=== PATIENT | female | born 1940 | race Caucasian/White ===

== ENCOUNTER 2019-11-10 07:54 | Day surgery (SDC) | payer MEDICARE, SELFPAY ==
[2019-11-09 09:55] VITALS: BMI 23.6
--- NOTE | 2019-11-10 08:08 | ANES.PREANES ---
Pre-Anesthetic Assessment Pre-Anesthetic Assessment: Height/Weight: Height 1.65 m Weight 64.41 kg Preop Diagnosis: abdominal pain Proposed Procedure: Operation Date: 11/10/19 09:30 Proposed Procedures p EGD(Not Applicable) - Jim Christianson MD Last Intake: 22:00 Social: Social History: Tobacco Packs per day: 1/2 ppd Pack years: 32 Exam: Pre-Anes Outpt Exam: alert, oriented x 3, clear to auscultation bilaterally and regular rate & rhythm Airway: Dentition: False CV/HEM: CV/HEM: HTN Comments: rx'd 10years : Comments: frequency, urgency GI: GI: GERD Comments: abdominal pain Metabolic: Metabolic: Thyroid Comments: replacement x 15 years Musc/skel: Musc/skel: Lower Back Pain Comments: right radiculopathy Neuropsych: Neuropsych: Anxiety Anesthetic Plan: ASA status: III Anesthesia: MAC PFSH Anesthesia PFSH: Social History (Updated 11/09/19 @ 09:37 by Leandra Crespo) Smoking and tobacco status: never smoked Alcohol intake: never Caregiver/support person: Yes Lives independently: Yes Household members: spouse Marital status: Current occupational status: retired Special mingo needs: No Data Anesthesia Cardiac Studies: No Data to Display
--- NOTE | 2019-11-10 08:33 | PM.HPUD ---
H&P update H&P Update: DATE OF SURGERY/PROCEDURE: 11/10/19 DATE H&P PERFORMED: 10/20/19 H&P UPDATE INFORMATION: H&P completed within last 30 days and No changes to prior documentation PLANNED PROCEDURE: Operation Date: 11/10/19 09:30 Proposed Procedures p EGD(Not Applicable) - Jim Christianson MD Full H&P Perinent History: Social History: Social History Smoking and tobacco status: never smoked Alcohol intake: never Caregiver/support person: Yes Lives independently: Yes Household members: spouse Marital status: Current occupational status: retired Special mingo needs: No
--- NOTE | 2019-11-10 08:38 | P.HPUD_ITS ---
H&P update H&P Update: DATE OF SURGERY/PROCEDURE: 11/10/19 DATE H&P PERFORMED: H&P UPDATE INFORMATION: H&P completed within last 30 days and No changes to prior documentation PLANNED PROCEDURE: Operation Date: 11/10/19 09:30 Proposed Procedures p EGD(Not Applicable) - Jim Christianson MD Full H&P Perinent History: Social History: Social History Smoking and tobacco status: never smoked Alcohol intake: never Caregiver/support person: Yes Lives independently: Yes Household members: spouse Marital status: Current occupational status: retired Special mingo needs: No
[2019-11-10 08:40] VITALS: BP 175/100; PULSE 68; RESP 18; TEMP 36.2; O2SAT 95
[2019-11-10] MEDS: sodium chloride 0.9% 1,000 ML 30 ML (08:50)
[2019-11-10 09:31] VITALS: BP 166/77; PULSE 68; RESP 16; TEMP 36.6; O2SAT 100
[2019-11-10 09:47] VITALS: BP 166/80; PULSE 66; RESP 16; O2SAT 94
--- NOTE | 2019-11-10 09:57 | ANE.PACU ---
 Inpatient post-anesthesia follow up: Airway intact: Yes Vital signs: Temperature 97.8 F Pulse Rate [Right] 66 Respiratory Rate 16 Blood Pressure [Ri ght Arm] 166/80 Pulse Oximetry 94 Oxygen Delivery Me thod Room Air Oxygen Flow Rate 3 Fraction of Inspir ed Oxygen Hydration adequate: Yes Nausea and vomiting: No Mental status: Baseline
== END 2019-11-10 10:04 | disposition home or self-care (01) ==
PROVIDERS: Family Provider Family Medicine; PCP Nurse Practitioner Family; Visit Provider Surgery
PROC: 0DJ08ZZ Inspection of Upper Intestinal Tract, Via Natural or Artificial Opening Endoscopic (ICD-10-PCS; CPT 43235; principal; 2019-11-10 09:30)
DX: K21.9 Gastro-esophageal reflux disease without esophagitis (principal); K44.9 Diaphragmatic hernia without obstruction or gangrene; K29.70 Gastritis, unspecified, without bleeding; F17.210 Nicotine dependence, cigarettes, uncomplicated; F41.9 Anxiety disorder, unspecified; E03.9 Hypothyroidism, unspecified; E78.5 Hyperlipidemia, unspecified; I11.0 Hypertensive heart disease with heart failure; I50.9 Heart failure, unspecified; I25.10 Atherosclerotic heart disease of native coronary artery without angina pectoris
CPT/HCPCS: 12345; 43239; 88305; 96365; J2704; J3490; J7030

== ENCOUNTER 2019-11-25 12:53 | Outpatient (CLI) | payer MEDICARE, SELFPAY ==
--- NOTE | 2019-11-25 12:59 | CT_ITS ---
WS: [id number] CT ABDOMEN PELVIS TECHNIQUE: Contrast-enhanced CT of the abdomen and pelvis with coronal and sagittal reformatted image s. CLINICAL INFORMATION: epigastric pain COMPARISON: None. DLP: 570.[address] scans at [facility] use at least one of these dose optimization techniques: automat ed exposure control; mA and/or kV adjustment per patient size (includes targeted exams where dose is matched to clinical indication); or iterative reconstruction. FINDINGS: Mild diffuse fatty infiltration of the liver. Portal vein and splenic vein are patent. Splenic granul omas. Moderate sliding esophageal hiatal hernia with a small paraesophageal component. No evidence of obstruction. Emphysematous change in the lung bases. Calcified granuloma left lower lobe. Adrenal glands are talia l. No hydronephrosis. Normal renal parenchymal enhancement. Normal caliber abdominal aorta. Aortic ca lcification. Normal caliber small and large bowel. Scattered stool in the colon. 2.8 cm focus of soft tissue densi ty at the ileocecal valve may represent inspissated fecal material but is indeterminant and recommend further evaluation with colonoscopy to exclude neoplasm. Additional short segment area of narrowing in the right colon coronal series image 31 and 32 may be due to spasm. No evidence of small or large bowel obstruction. No periaortic or inguinal lymphadenopathy. Prior postoperative changes L2-L4 pedicle screw fixation with interbody fusion L3-4. Grade 1 anteroli sthesis L4 on L5 with prior interbody fusion. Wide laminectomy defects with dorsolateral bone graft m aterial L2-L5. CT/CT abdomen pelvis w con* [id number] IMPRESSION: 1. Mild diffuse fatty infiltration of the liver. 2. Esophageal hiatal hernia with a small paraesophageal component. No evidence of obstruction. 3. Soft tissue density in the cecum near the ileocecal valve measuring 2.8 cm is indeterminant. Recommend further evaluation with colonoscopy. Additional britta rt segment region of narrowing involving the right ascending colon. 4. Normal caliber abdominal aorta. Aortic calcification. 5. No periaortic or inguinal lymphadenopathy. 6. Prior postoperative changes lower lumbar spine with pedicle screw fixation. Grade 1 anterolisthesis L4 on L5 with wide laminectomy defects L2-L5.
[2019-11-25] MEDS: iohexol 300 mg/mL 50 mL Btl IV (13:03)
[2019-11-25 13:41] LABS: Blood Urea Nitrogen 17 mg/dL (8-23)
[2019-11-25] MEDS: iohexol 300 mg/mL 100 mL Btl IV (14:08)
== END 2019-11-25 12:54 | disposition home or self-care (01) ==
LOC: RAD 12:57
PROVIDERS: Family Provider Family Medicine; PCP Nurse Practitioner Family; Visit Provider Surgery
DX: R10.13 Epigastric pain (principal); K76.0 Fatty (change of) liver, not elsewhere classified; K44.9 Diaphragmatic hernia without obstruction or gangrene; I70.0 Atherosclerosis of aorta
CPT/HCPCS: 36415; 74177; 82565; 84520

== ENCOUNTER 2019-12-01 06:57 | Day surgery (SDC) | payer MEDICARE, SELFPAY ==
[2019-12-01 07:26] VITALS: BMI 23.6
[2019-12-01 07:35] VITALS: BP 158/96; PULSE 106; RESP 18; TEMP 37.3; O2SAT 97
[2019-12-01] MEDS: sodium chloride 0.9% 1,000 ML 30 ML (07:36)
--- NOTE | 2019-12-01 07:42 | ANES.PREANE2 ---
Pre-Anesthetic Assessment Pre-Anesthetic Assessment: Height/Weight: Height 1.65 m Weight 64.41 kg Temp Pulse Resp BP Pulse Ox 99.2 F 106 H 18 158/96 97 12/01/19 07:35 12/01/19 07:35 12/01/19 07:35 12/01/19 07:35 12/01/19 07:35 Preop Diagnosis: Colonic mass Proposed Procedure: Operation Date: 12/01/19 08:00 Proposed Procedures p Colonoscopy 83494/K56.699(Not Applicable) - Jim Christianson MD Was Beta Coleman taken within 24 hours: Yes Last intake: Intake Last Liquid Date 11/30/19 Last Liquid Time 02:00 Last Solid Date 11/29/19 Last Solid Time 18:00 Social: Social History: Tobacco and No alcohol Exam: Pre-Anes Outpt Exam: alert, oriented x 3, clear to auscultation bilaterally and regular rate & rhythm Airway: Submandibular: WNL Cervical ROM: WNL MP: 2 Dentition: False and Full History/ROS: No significant history except as noted and No significant complaints Pulmonary: Pulmonary: None reported CV/HEM: CV/HEM: Arrythmia and HTN : : None reported Hepatic: Hepatic: None reported GI: GI: GERD and Hiatus hernia Metabolic: Metabolic: Thyroid Musc/skel: Musc/skel: None reported Neuropsych: Neuropsych: Anxiety and Neuropathy Anesthetic Plan: ASA status: 3 Anesthesia: Anesthesia Evaluation and MAC Risk of > 500 ml blood loss (7ml/kg in children): No PFSH Anesthesia PFSH: Medical History (Updated 11/27/19 @ 10:57 by Jim Christianson MD) Anxiety Gastritis GERD (gastroesophageal reflux disease) Gout Hiatal hernia Hyperlipidemia Hypertension Hypothyroidism Migraine Neuropathy Surgical History (Updated 11/27/19 @ 10:54 by Jim Christianson MD) History of appendectomy History of bilateral cataract extraction History of bladder surgery History of colonoscopy History of esophagogastroduodenoscopy (EGD) 11/10/2019: Gastritis and hiatal hernia History of hernia repair with mesh History of lumbar fusion History of repair of rectocele History of thyroidectomy History of tonsillectomy S/P KENTON-BSO Social History (Updated 11/09/19 @ 09:37 by Leandra Crespo) Smoking and tobacco status: never smoked Alcohol intake: never Caregiver/support person: Yes Lives independently: Yes Household members: spouse Marital status: Current occupational status: retired Special mingo needs: No Data Anesthesia Cardiac Studies: No Data to Display
[2019-12-01 08:09] VITALS: BP 148/75; PULSE 82; RESP 16; TEMP 36.8; O2SAT 94
--- NOTE | 2019-12-01 08:22 | PM.HPUD ---
H&P update H&P Update: DATE OF SURGERY/PROCEDURE: 12/01/19 DATE H&P PERFORMED: 11/27/19 H&P UPDATE INFORMATION: H&P completed within last 30 days and No changes to prior documentation PREOP DIAGNOSIS: Colonic mass PLANNED PROCEDURE: Operation Date: 12/01/19 08:00 Proposed Procedures p Colonoscopy 35255/K56.699(Not Applicable) - Jim Christianson MD Full H&P Perinent History: Medical/Surgical History: Medical History (Updated 12/01/19 @ 08:12 by Jim Christianson MD) Anxiety Gastritis GERD (gastroesophageal reflux disease) Gout Hiatal hernia Hyperlipidemia Hypertension Hypothyroidism Migraine Neuropathy Social History: Social History Smoking and tobacco status: never smoked Alcohol intake: never Caregiver/support person: Yes Lives independently: Yes Household members: spouse Marital status: Current occupational status: retired Special mingo needs: No
[2019-12-01 08:34] VITALS: BP 126/88; PULSE 84; RESP 18; TEMP 36.8; O2SAT 96
== END 2019-12-01 08:41 | disposition home or self-care (01) ==
PROVIDERS: Family Provider Family Medicine; PCP Nurse Practitioner Family; Visit Provider Surgery
PROC: 0DJD8ZZ Inspection of Lower Intestinal Tract, Via Natural or Artificial Opening Endoscopic (ICD-10-PCS; CPT 45378; principal; 2019-12-01 08:00)
DX: K56.699 Other intestinal obstruction unspecified as to partial versus complete obstruction (principal); K64.8 Other hemorrhoids; E78.5 Hyperlipidemia, unspecified; I10 Essential (primary) hypertension; E03.9 Hypothyroidism, unspecified
CPT/HCPCS: 12345; 45378; J2001; J2704; J7030

== ENCOUNTER 2020-04-01 15:12 | Outpatient (CLI) | payer MEDICARE, SELFPAY ==
--- NOTE | 2020-04-01 15:43 | USCV_ITS ---
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 PROCEDURES: Venous duplex imaging was performed in bilateral lower extremities. The following venous structures were evaluated: common femoral vein, profunda vein, proximal portion of the greater saphenous vein, superficial femoral vein, and the popliteal vein. In addition, the posterior tibial and peroneal trunk were evaluated. FINDINGS: Normal 2-D Doppler and augmentation and compressibility throughout the lower extremity venous structures. Additional imaging through the proximal calf veins also reveals no thrombus. Limited evaluation of the greater saphenous vein is patent with no thrombus.. CONCLUSIONS No evidence of DVT in the above-mentioned identifiable veins. Dr Osmel Arroyo MD [facility] (Electronically Signed) Final Date: 04 April 2020 15:20 S
== END 2020-04-01 15:13 | disposition home or self-care (01) ==
LOC: RAD 15:15
PROVIDERS: PCP Nurse Practitioner Family; Visit Provider Nurse Practitioner Family
DX: M79.605 Pain in left leg (principal); M79.604 Pain in right leg
CPT/HCPCS: 93970

== ENCOUNTER → 2020-09-12 09:12 | Outpatient (BNVA) | payer MEDICARE, SELFPAY | PROVIDERS: PCP Nurse Practitioner Family; Referring Provider Nurse Practitioner Family; Visit Provider Nurse Practitioner Family | DX: M25.561 Pain in right knee (principal); M79.671 Pain in right foot | CPT/HCPCS: 73562; 73630 ==

== ENCOUNTER → 2021-01-25 12:43 | Outpatient (BNVA) | payer MEDICARE, SELFPAY | PROVIDERS: PCP Nurse Practitioner Family; Referring Provider Nurse Practitioner Family; Visit Provider Nurse Practitioner Family | DX: M25.572 Pain in left ankle and joints of left foot (principal); M79.672 Pain in left foot; J06.9 Acute upper respiratory infection, unspecified | CPT/HCPCS: 71046; 73610; 73630 ==

== ENCOUNTER → 2021-04-10 13:47 | Outpatient (BNVA) | payer MEDICARE, SELFPAY | PROVIDERS: PCP Nurse Practitioner Family; Referring Provider Nurse Practitioner Family; Visit Provider Nurse Practitioner Family | DX: M25.562 Pain in left knee (principal); M79.662 Pain in left lower leg | CPT/HCPCS: 73562; 73590 ==

== ENCOUNTER → 2021-05-15 14:59 | Outpatient (BNVA) | payer MEDICARE, SELFPAY | PROVIDERS: PCP Nurse Practitioner Family; Referring Provider Nurse Practitioner Family; Visit Provider Nurse Practitioner Family | DX: M79.672 Pain in left foot (principal) | CPT/HCPCS: 73630 ==

== ENCOUNTER → 2022-02-19 12:52 | Outpatient (BNVA) | payer MEDICARE, SELFPAY | PROVIDERS: PCP Nurse Practitioner Family; Visit Provider Nurse Practitioner Family | DX: J18.9 Pneumonia, unspecified organism (principal) | CPT/HCPCS: 71046 ==

== ENCOUNTER → 2022-07-09 15:14 | Outpatient (BNVA) | payer MEDICARE, SELFPAY | PROVIDERS: PCP Nurse Practitioner Family; Referring Provider Nurse Practitioner Family; Visit Provider Nurse Practitioner Family | DX: M25.572 Pain in left ankle and joints of left foot (principal); M25.562 Pain in left knee | CPT/HCPCS: 73562; 73610 ==

== ENCOUNTER → 2024-03-02 12:48 | Outpatient (BNVA) | payer MEDICARE, SELFPAY | PROVIDERS: PCP Nurse Practitioner Family; Visit Provider Surgery | DX: K92.2 Gastrointestinal hemorrhage, unspecified (principal); R10.9 Unspecified abdominal pain; K59.00 Constipation, unspecified; R63.4 Abnormal weight loss | CPT/HCPCS: 99204 ==

== ENCOUNTER 2024-03-23 14:24 | Outpatient (CLI) | payer MEDICARE, SELFPAY ==
--- NOTE | 2024-03-23 14:30 | XR_ITS ---
WS: [id number] XR chest 2V* [id number] REASON FOR EXAM: SHORTNESS OF BREATH FINDINGS: Calcified aortic arch. Mild tortuosity thoracic aorta. Normal heart size. Calcified granulomas disease bilaterally. The lungs appear more hyperexpanded with flattening of the hemidiaphragms than on previous examinatio ns of 2020 and 2021. There are prominent reticular interstitial opacities throughout the lung with va jesi areas of lucency interspersed. These findings suggest central lobar emphysema. No acute pulmonary parenchymal or pleural abnormality is identified. L1 and L2 vertebroplasties. Posterior lumbar fusion with superior extent at L3. XR/XR chest 2V* [id number] IMPRESSION: Central lobar emphysema with increased hyperexpansion compared to previous exam inations. No definite acute abnormality identified.
== END 2024-03-23 14:25 | disposition home or self-care (01) ==
LOC: RAD 14:27
PROVIDERS: PCP Nurse Practitioner Family; Visit Provider Nurse Practitioner Family
DX: J84.10 Pulmonary fibrosis, unspecified (principal); I70.0 Atherosclerosis of aorta; R91.8 Other nonspecific abnormal finding of lung field; Z98.890 Other specified postprocedural states; M43.26 Fusion of spine, lumbar region
CPT/HCPCS: 71046

== ENCOUNTER → 2024-03-31 14:38 | Outpatient (BNVA) | payer MEDICARE, SELFPAY | PROVIDERS: PCP Nurse Practitioner Family; Visit Provider Nurse Practitioner Family | DX: J18.9 Pneumonia, unspecified organism (principal) | CPT/HCPCS: 87070; 87205 ==

== ENCOUNTER 2024-04-08 10:37 | Day surgery (SDC) | payer MEDICARE, SELFPAY ==
[2024-04-08 11:16] VITALS: BP 154/103; PULSE 103; RESP 18; TEMP 36.2; O2SAT 96
--- NOTE | 2024-04-08 11:36 | ANES.PREANE2 ---
Pre-Anesthetic Assessment Height/Weight: Height 1.6 m Weight 55.792 kg Temp Pulse Resp BP Pulse Ox O2 Del Method 97.1 F L 103 H 18 154/103 96 Room Air 04/08/24 11:16 04/08/24 11:16 04/08/24 11:16 04/08/24 11:16 04/08/24 11:16 04/08/24 11:16 Operation Date: 04/08/24 12:00 Proposed Procedures p EGD 31163, 58839, G0105, K92.2, R10.9, K59.00(Not Applicable) - DO jone Eckert Colonoscopy(Not Applicable) - Humphrey Weir DO Familial anesthetic complications: none Was Beta Coleman taken within 24 hours: N/A Was Clonidine taken within 24 hours: N/A Last intake: Intake Last Liquid Date 04/07/24 Last Liquid Time 21:00 Last Solid Date 04/06/24 Last Solid Time 18:00 Social No alcohol and No tobacco Exam alert and oriented x 3 Airway Submandibular: within normal limits Cervical ROM: within normal limits Mallampati: Class I Dentition: false CV/HEM Hypertension GI Gastroesophageal Reflux Disease and Hiatal Hernia Metabolic Thyroid Disease Musc/skel Lower Back Pain and Osteoarthritis/DJD Anesthetic Plan ASA status: 3 Anesthesia: Anesthesia Evaluation, General and MAC Risk of > 500 ml blood loss (7ml/kg in children): No Medications/Allergies Home Medications Medication Instructions Recorded Confirmed Last Taken Type alprazolam 0.5 mg tablet 0.5 mg PO BID 11/09/19 04/06/24 04/07/24 History benazepril 40 mg tablet 40 mg PO DAILY 11/09/19 04/06/24 04/07/24 History gabapentin 300 mg capsule 600 mg PO TID 11/09/19 04/06/24 04/07/24 History levothyroxine 75 mcg tablet 75 mcg PO DAILY 11/09/19 04/06/24 04/08/24 History omeprazole 20 mg capsule,delayed 20 mg PO DAILY 11/09/19 04/06/24 04/07/24 History release simvastatin 40 mg tablet 40 mg PO DAILY 11/09/19 04/06/24 04/07/24 History prednisone 20 mg tablet 20 mg PO DAILY #18 tabs 03/31/24 04/06/24 04/07/24 Rx albuterol sulfate 90 mcg/actuation 2 puff inhalation Q6H PRN 04/06/24 04/06/24 04/07/24 History aerosol inhaler Shortness Of Breath Allergies Allergy/AdvReac Type Severity Reaction Status Date / Time cyclobenzaprine Allergy ADR-Faintin Verified 04/08/24 11:19 [From Flexeril] g hydroxychloroquine Allergy ADR-Faintin Verified 04/08/24 11:21 [From Plaquenil] g latex Allergy ALGY-Rash Verified 04/08/24 11:21 PFS Anesthesia Medical History Neuropathy Gout Hypothyroidism Hyperlipidemia Hypertension Migraine GERD (gastroesophageal reflux disease) Anxiety Gastritis Hiatal hernia Surgical History Status post colonoscopy 12/01/2019: normal S/P [facility]-BSO History of lumbar fusion History of hernia repair with mesh History of bladder surgery History of appendectomy History of bilateral cataract extraction History of repair of rectocele History of thyroidectomy History of tonsillectomy History of colonoscopy History of esophagogastroduodenoscopy (EGD) 11/10/2019: Gastritis and hiatal hernia Social History Smoking and tobacco/nicotine status: current every day tobacco/nicotine user Alcohol intake: never Substance/Drug Use: never Caregiver/support person: Yes Lives independently: Yes Household members: spouse Marital status: Current occupational status: retired Special mingo needs: No Data Anesthesia Cardiac Studies: No Data to Display
--- NOTE | 2024-04-08 11:44 | PM.HP ---
Providers/Chief Complaint Primary Care Provider: Nevaeh Rah Chief Complaint: K92.2, R10.9, K59.00 History of Present Illness Rachel Nazario is a 83 year old female Review of Systems General: Reports: 10 or more systems reviewed and unremarkable except in HPI and below Medications/Allergies Home Medications Medication Instructions Recorded Confirmed Last Taken Type alprazolam 0.5 mg tablet 0.5 mg PO BID 11/09/19 04/06/24 04/07/24 History benazepril 40 mg tablet 40 mg PO DAILY 11/09/19 04/06/24 04/07/24 History gabapentin 300 mg capsule 600 mg PO TID 11/09/19 04/06/24 04/07/24 History levothyroxine 75 mcg tablet 75 mcg PO DAILY 11/09/19 04/06/24 04/08/24 History omeprazole 20 mg capsule,delayed 20 mg PO DAILY 11/09/19 04/06/24 04/07/24 History release simvastatin 40 mg tablet 40 mg PO DAILY 11/09/19 04/06/24 04/07/24 History prednisone 20 mg tablet 20 mg PO DAILY #18 tabs 03/31/24 04/06/24 04/07/24 Rx albuterol sulfate 90 mcg/actuation 2 puff inhalation Q6H PRN 04/06/24 04/06/24 04/07/24 History aerosol inhaler Shortness Of Breath Allergies Allergy/AdvReac Type Severity Reaction Status Date / Time cyclobenzaprine Allergy ADR-Faintin Verified 04/08/24 11:19 [From Flexeril] g hydroxychloroquine Allergy ADR-Faintin Verified 04/08/24 11:21 [From Plaquenil] g latex Allergy ALGY-Rash Verified 04/08/24 11:21 PFSH Acute PFSH: Medical History Neuropathy Gout Hypothyroidism Hyperlipidemia Hypertension Migraine GERD (gastroesophageal reflux disease) Anxiety Gastritis Hiatal hernia Surgical History Status post colonoscopy 12/01/2019: normal S/P K[facility]ON-BSO History of lumbar fusion History of hernia repair with mesh History of bladder surgery History of appendectomy History of bilateral cataract extraction History of repair of rectocele History of thyroidectomy History of tonsillectomy History of colonoscopy History of esophagogastroduodenoscopy (EGD) 11/10/2019: Gastritis and hiatal hernia Social History Smoking and tobacco/nicotine status: current every day tobacco/nicotine user Alcohol intake: never Substance/Drug Use: never Caregiver/support person: Yes Lives independently: Yes Household members: spouse Marital status: Current occupational status: retired Special mingo needs: No Vitals/I&O/Wt Last Vital Signs Temp 97.1 F L 04/08/24 11:16 Pulse 103 H 04/08/24 11:16 Resp 18 04/08/24 11:16 BP 154/103 04/08/24 11:16 Pulse Ox 96 04/08/24 11:16 O2 Del Method Room Air 04/08/24 11:16 Weight last 48 hrs Weight 123 lb A&P Assessment and plan (1) GI bleed: (2) Abdominal pain: Plan EGD and colonoscopy Attestations Medical Necessity Statement*: Home Coding Level of Care Code Acute Code for g Fwd Diagnoses GI bleed K92.2 Abdominal pain R10.9
[2024-04-08] MEDS: sodium chloride 0.9% 1,000 ML 30 ML IV (11:56)
[2024-04-08] MEDS: EPINEPHrine 1 mg/mL INJ XX (12:36)
[2024-04-08 12:54] VITALS: BP 134/79; PULSE 89; RESP 18; TEMP 36.1; O2SAT 90
--- NOTE | 2024-04-08 12:55 | ANE.PACU2 ---
Inpatient post-anesthesia follow up: Airway intact: Yes Vital signs: Temperature 97.0 F Pulse Rate 89 Respiratory Rate 18 Blood Pressure 134/79 Pulse Oximetry 90 Oxygen Delivery Me thod Room Air Oxygen Flow Rate Fraction of Inspir ed Oxygen Hydration adequate: Yes Nausea and vomiting: No Pain level: 1 Mental status: Baseline
[2024-04-08 12:56] VITALS: BP 158/93; PULSE 82; RESP 20; O2SAT 93
[2024-04-08 13:06] VITALS: BP 161/99; PULSE 81; RESP 20; O2SAT 95
== END 2024-04-08 13:40 | disposition home or self-care (01) ==
PROVIDERS: PCP Nurse Practitioner Family; Visit Provider Surgery
PROC: 0DJ08ZZ Inspection of Upper Intestinal Tract, Via Natural or Artificial Opening Endoscopic (ICD-10-PCS; CPT 43235; principal; 2024-04-08 12:00)
PROC: 0DJD8ZZ Inspection of Lower Intestinal Tract, Via Natural or Artificial Opening Endoscopic (ICD-10-PCS; CPT 45378; 2024-04-08 12:00)
DX: D12.5 Benign neoplasm of sigmoid colon (principal); K29.50 Unspecified chronic gastritis without bleeding; K64.8 Other hemorrhoids; R10.9 Unspecified abdominal pain; E03.9 Hypothyroidism, unspecified; E78.5 Hyperlipidemia, unspecified; I10 Essential (primary) hypertension; K21.9 Gastro-esophageal reflux disease without esophagitis; F41.9 Anxiety disorder, unspecified; F17.210 Nicotine dependence, cigarettes, uncomplicated
CPT/HCPCS: 43239; 43255; 45385; 88305; 88342; J0171; J2704; J7030

== ENCOUNTER 2024-04-15 09:02 | Outpatient (CLI) | payer MEDICARE, SELFPAY ==
--- NOTE | 2024-04-15 09:15 | US_ITS ---
WS: [id number] ULTRASOUND ABDOMEN LIMITED CLINICAL INFORMATION: abdominal pain COMPARISON: None. FINDINGS: Liver Size: Normal. Craniocaudal length: 13.9 cm. Echogenicity: Coarse Surface nodularity: None. Mass (size and location): None. Main portal vein is patent. Bile ducts Intrahepatic ducts: Normal. Common bile duct diameter: 0.6 cm. Gallbladder Sludge Gallstones: None. Gallbladder sludge: Present Gallbladder wall thickening: None. Pericholecystic fluid: None. Sonographic Douglass sign: Absent. Pancreas Normal as visualized. Right kidney: Normal. Hydronephrosis: None. Size: 8.5 cm x 4.6 cm x 4.7 cm. Abdominal aorta and IVC Visualized portions are normal. Ascites: None. US/US gall bladder 97564 IMPRESSION: 1. Mild diffuse fatty infiltration of the liver with coarse hepatic echogenici ty. 2. Gallbladder sludge. No wall thickening or pericholecystic fluid. 3. Normal common bile duct. 4. Normal common bile duct. 5. No hydronephrosis in the RIGHT kidney.
== END 2024-04-15 09:03 | disposition home or self-care (01) ==
LOC: RAD 09:03
PROVIDERS: PCP Nurse Practitioner Family; Visit Provider Surgery
DX: R10.30 Lower abdominal pain, unspecified (principal)
CPT/HCPCS: 76705

== ENCOUNTER → 2024-05-01 10:50 | Outpatient (BNVA) | payer MEDICARE, SELFPAY | PROVIDERS: PCP Nurse Practitioner Family; Visit Provider Surgery | DX: Z09 Encounter for follow-up examination after completed treatment for conditions other than malignant neoplasm (principal); K29.70 Gastritis, unspecified, without bleeding; B96.81 Helicobacter pylori [H. pylori] as the cause of diseases classified elsewhere; D37.4 Neoplasm of uncertain behavior of colon; K82.8 Other specified diseases of gallbladder; K64.8 Other hemorrhoids | CPT/HCPCS: 99214 ==

== ENCOUNTER 2024-05-07 07:56 | Day surgery (SDC) | payer MEDICARE, SELFPAY ==
[2024-05-07] VITALS (13 sets, daily range): BP systolic 137–177; BP diastolic 78–92; PULSE 88–106; RESP 17–18; TEMP 36–36.8; O2SAT 86–100; BMI 21.7
--- NOTE | 2024-05-07 08:22 | W.PM.OPSUD ---
Surgery/Procedure H&P Update DATE OF PROCEDURE: May 07, 2024 DATE H&P PERFORMED: 05/01/24 H&P UPDATE INFORMATION: I have reviewed H&P completed within last 30 days, I have examined patient prior to procedure and No changes to prior documentation PLANNED PROCEDURE: Operation Date: 05/07/24 09:25 Proposed Procedures p Hemorrhoidectomy 17344, 46142,K64.8, K82.8(Not Applicable) - DO jone Eckert Laparoscopic Cholecystectomy(Not Applicable) - Humphrey Weir DO
--- NOTE | 2024-05-07 08:36 | ECG_ITS ---
[facility] Test Date: 2024-05-07 Pat Name: Rachel Nazario Department: Room: Gender: Female [employer]: : 1940 Requested By: Jessica Mathias Order Number: [id number] Roman MD: Osmel Arroyo M.D. Measurements Intervals [place] Rate: 85 P: 31 [place]: 146 QRS: 1 QRSD: 86 T: 1 QT: 379 QTc: 452 Interpretive Statements SINUS RHYTHM No previous ECG available for comparison Electronically Signed On 05-07-2024 22:27:30 CDT by Osmel Arroyo M.D. [id number]
[2024-05-07] MEDS: sodium chloride 0.9% 1,000 ML 30 ML IV (08:37)
--- NOTE | 2024-05-07 09:17 | P.ANESASSM_ITS ---
Pre-Anesthetic Assessment Height/Weight: Height 1.6 m Weight 55.792 kg Temp Pulse Resp BP Pulse Ox O2 Del Method 98.2 F 106 H 17 140/84 94 Room Air 05/07/24 08:19 05/07/24 08:19 05/07/24 08:19 05/07/24 08:19 05/07/24 08:19 05/07/24 08:20 Operation Date: 05/07/24 09:25 Proposed Procedures p Hemorrhoidectomy 19964, 83183,K64.8, K82.8(Not Applicable) - Humphrey Weir DO s Laparoscopic Cholecystectomy(Not Applicable) - Humphrey Weir DO Was Beta Coleman taken within 24 hours: N/A Was Clonidine taken within 24 hours: N/A Last intake: Intake Last Liquid Date 05/06/24 Last Liquid Time 19:00 Last Solid Date 05/06/24 Last Solid Time 19:00 Social No alcohol and No tobacco Exam alert, oriented x 3, clear to auscultation bilaterally and regular rate & rhythm Airway Submandibular: within normal limits Cervical ROM: within normal limits Mallampati: Class I Comments: Comments: dentures History/ROS No significant history except as noted Pulmonary None reported patient denies, but uses albuterol CV/HEM Hypertension EKG NSR None reported Hepatic None reported GI Gastroesophageal Reflux Disease patient reports asymptomatic today Metabolic Hyperlipidemia and Thyroid Disease Musc/skel Lower Back Pain multiple back surgeries. patient reports 10/10 pain today. discussed realistic pain management expectations for post-op planning Neuropsych Anxiety and Depression Anesthetic Plan ASA status: 2 Anesthesia: Anesthesia Evaluation and General Risk of > 500 ml blood loss (7ml/kg in children): Yes, adequate IV access and fluids planned Medications/Allergies Home Medications Medication Instructions Recorded Confirmed Last Taken Type alprazolam 0.5 mg tablet 0.5 mg PO BID 11/09/19 05/06/24 05/06/24 History benazepril 40 mg tablet 40 mg PO DAILY 11/09/19 05/06/24 05/06/24 History gabapentin 300 mg capsule 600 mg PO TID 11/09/19 05/06/24 05/06/24 History levothyroxine 75 mcg tablet 75 mcg PO DAILY 11/09/19 05/06/24 05/06/24 History albuterol sulfate 90 mcg/actuation 2 puff inhalation Q6H PRN 04/06/24 05/06/24 05/06/24 History aerosol inhaler Shortness Of Breath pantoprazole 40 mg tablet,delayed 40 mg PO BID 12 weeks #168 tabs 04/08/24 05/06/24 05/06/24 Rx release (Protonix) amoxicillin 500 mg tablet 1,000 mg (2 x 500 mg) PO BID 14 05/01/24 05/06/24 05/06/24 Rx days #56 tabs clarithromycin 500 mg tablet 500 mg PO BID 14 days #28 tabs 05/01/24 05/06/24 05/06/24 Rx fenofibrate 160 mg tablet 160 mg PO DAILY 05/06/24 05/06/24 05/06/24 History Allergies Allergy/AdvReac Type Severity Reaction Status Date / Time latex Allergy Mild ALGY-Rash Verified 05/07/24 08:10 cyclobenzaprine Allergy ADR-Faintin Verified 05/01/24 10:56 [From Flexeril] g Current Medications Generic Name Dose Route Start Last Admin Trade Name Freq PRN Reason Stop Dose Admin Sodium Chloride 1,000 mls @ 30 mls/hr 05/07/24 08:00 05/07/24 08:37 Sodium Chloride 0.9% IV 05/08/24 07:59 30 mls/hr .Q24H SHAHNAZ Administration PFSH Anesthesia Medical History Neuropathy Gout Hypothyroidism Hyperlipidemia Hypertension Migraine GERD (gastroesophageal reflux disease) Anxiety Gastritis Hiatal hernia Surgical History Status post colonoscopy 12/01/2019: normal S/P [facility]-BSO History of lumbar fusion History of hernia repair with mesh History of bladder surgery History of appendectomy History of bilateral cataract extraction History of repair of rectocele History of thyroidectomy History of tonsillectomy History of colonoscopy History of esophagogastroduodenoscopy (EGD) 11/10/2019: Gastritis and hiatal hernia Social History Smoking and tobacco/nicotine status: current every day tobacco/nicotine user Alcohol intake: never Substance/Drug Use: never Caregiver/support person: Yes Lives independently: Yes Household members: spouse Marital status: Current occupational status: retired Special mingo needs: No Data Anesthesia 05/07/24 08:33 BMP 05/07/24 08:33 Sodium Cancelled Potassium Cancelled Chloride Cancelled Carbon Dioxide Cancelled BUN Cancelled Creatinine Cancelled Glucose Cancelled Calcium Cancelled Cardiac Studies: 2 No Data to Display
[2024-05-07] MEDS: ceFAZolin 2,000 mg SDV 2000 MG IVP (09:21)
[2024-05-07] MEDS: lidocaine-epi 2% PF 1:200,000 20 mL SDV XX (09:39)
[2024-05-07 09:50] LABS: Blood Urea Nitrogen 6 mg/dL (8-23); Calcium 6.7 mg/dL (8.5-10.5); Carbon Dioxide 18 mmol/L (22-29); Chloride 113 mmol/L (98-107); Creatinine Clr Calc Pharmacy 43.6307; Glucose 79 mg/dL (65-115); Osmolality Calculated 291 mOsm/kg (285-295); Sodium 142 mmol/L (136-145)
[2024-05-07 10:10] LABS: Anion Gap 13.9 (5-19); Potassium 2.9 mmol/L (3.5-5.1)
--- NOTE | 2024-05-07 10:13 | SUR.PREOP ---
1010-received critical lab results of K+=2.9. Notified LEGAL INVESTIGATOR to update surgeon and anesthesia.
[2024-05-07] MEDS: thrombin 5,000 unit SDV 5000 UNIT XX (10:52)
[2024-05-07] MEDS: BUPivacaine liposome 13.3 mg/mL SDV 20 mL 166 MG INFILTRATI (10:57)
[2024-05-07] MEDS: BUPivacaine 0.5% INJ 10 mL INJECTION (10:57)
--- NOTE | 2024-05-07 11:09 | P.OP_ITS ---
Operative Report Date of procedure: May 07, 2024 Surgeon: Humphrey Weir DO Brief History: This is a very pleasant 84-year-old female who presented my office with chronic abdominal pain and pain and bleeding from internal hemorrhoids despite maximal medical therapy. She was diagnosed with biliary dyskinesia. Cholecystectomy and hemorrhoidectomy were indicated. The risks and benefits were explained and documented. Patient reports that prior to surgery she had issues with incontinence of stool and flatus. Procedure: Preoperative diagnosis: Biliary dyskinesia, internal hemorrhoids Postoperative diagnosis: Same Procedure performed: Laparoscopic cholecystectomy, hemorrhoidectomy of all 3 pillars Surgeon: Dr. Humphrey Weir DO Estimated blood loss: 5 mL Specimens: Gallbladder and hemorrhoids to pathology Complications: None apparent Description of procedure: Patient was wheeled into the operative room and placed on the OR table in a supine position. Abdomen was inspected prepped and draped in usual sterile fashion. Time-out was performed and all present were in agreement. A 15 blade scalp was used to make a stab incision in the left upper quadrant and intra- abdominal insufflation was achieved using a Veress needle. After localizing the tissue incisions were made and a 5 millimeter trocar was placed into the umbilicus as well as 2 in the right upper quadrant. A 12 millimeter trocar was placed in the epigastrium. Gallbladder was grasped and elevated. The triangle of Calot was carefully dissected using blunt dissection and electrocautery until the triangle of Calot clearly identified. The cystic duct was clipped proximally and double clipped distally. The duct was then ligated proximally. The cystic artery was doubly clipped and ligated. The gallbladder was then removed from the liver bed using electrocautery. The gallbladder was removed from the abdomen using an Endo-Catch bag through the epigastric incision. The liver bed was inspected and no bleeding was seen. The abdomen was irrigated and suctioned. All ports removed. Skin was washed and dried. Incisions were closed with 4-0 Monocryl in a subcuticular interrupted fashion. Skin glue was applied. Drapes were taken down and patient was then placed into the prone position. The anus was inspected prepped and draped in usual sterile fashion. Retractor was used to examine the anus and she had sizable hemorrhoids at all 3 pillars. The largest pillar was the right anterior. All 3 pillars were taken in the same manner. The exterior most edge of the hemorrhoid was slightly ligated with electrocautery. The harmonic scalpel was then used to excise all 3 hemorrhoidal pillars. There was minimal bleeding. Exparel with Sensorcaine with was injected around the anus. Thrombin-soaked Gelfoam was then placed into the anus. Sterile bandage was applied. Patient tolerated procedure well.
--- NOTE | 2024-05-07 12:20 | SUR.PHASEII ---
Patient returned to Phase II from PACU with no gown on, a low body temperature and low O2 sats. patient was placed on NC at 3 L and covered.
[2024-05-07] MEDS: HYDROcodone-acetaminophen 7.5-325 mg Tablet 1 TAB PO (12:54)
--- NOTE | 2024-05-07 13:45 | ANE.PACU2 ---
Inpatient post-anesthesia follow up: Airway intact: Yes Vital signs: Temperature 97.1 F Pulse Rate 100 Respiratory Rate 17 Blood Pressure 159/81 Pulse Oximetry 95 Oxygen Delivery Me thod Room Air Oxygen Flow Rate 3 Fraction of Inspir ed Oxygen Hydration adequate: Yes Nausea and vomiting: No Pain level: 1
== END 2024-05-07 13:45 | disposition home or self-care (01) ==
PROVIDERS: PCP Nurse Practitioner Family; Visit Provider Surgery
PROC: (CPT 46260; principal; 2024-05-07 09:15)
PROC: 0FT44ZZ Resection of Gallbladder, Percutaneous Endoscopic Approach (ICD-10-PCS; CPT 47562; 2024-05-07 09:15)
DX: K81.1 Chronic cholecystitis (principal); K64.8 Other hemorrhoids; E03.9 Hypothyroidism, unspecified; E78.5 Hyperlipidemia, unspecified; I10 Essential (primary) hypertension; K21.9 Gastro-esophageal reflux disease without esophagitis; F41.9 Anxiety disorder, unspecified; Z98.1 Arthrodesis status; F17.200 Nicotine dependence, unspecified, uncomplicated
CPT/HCPCS: 46260; 47562; 80048; 88304; 93005; C9290; J0690; J1100; J1170; J2405; J2704; J3010; J3490; J7030

== ENCOUNTER 2024-05-09 10:18 | Emergency (ER) | payer MEDICARE, SELFPAY ==
[2024-05-09 10:18] VITALS: BP 149/100; PULSE 126; RESP 21; TEMP 36.8; O2SAT 93; BMI 21.7
--- NOTE | 2024-05-09 10:35 | XRR_ITS ---
PROCEDURE INFORMATION: Exam: XR Chest Exam date and time: 05/09/2024 11:05 AM Age: 84 years old Clinical indication: Other: Weakness, lethargy; Patient HX: Patient had lap eva 2 days ago, patient has not eaten since before surgery, barely drank anything. Patient is lethargic and weak and won't get out of bed per . Patient is wearing a brief and won't get out of bed to urinate per . Patient is also vomiting. No bowel movement in several days. TECHNIQUE: Imaging protocol: Radiologic exam of the chest. Views: 1 view. COMPARISON: CR XR chest 2V* [id number] 03/23/2024 2:35 PM FINDINGS: Lungs: Patchy atelectasis involves the left lung base. Both lungs demonstrate chronic interstitial coarsening. Pleural spaces: Unremarkable. No pleural effusion. No pneumothorax. Heart/Mediastinum: Unremarkable. No cardiomegaly. Bones/joints: Unremarkable. XR/XR chest 1V portable [id number] IMPRESSION: Left basilar atelectasis
--- NOTE | 2024-05-09 10:35 | CTR_ITS ---
PROCEDURE INFORMATION: Exam: CT Abdomen And Pelvis With Contrast Exam date and time: 05/09/2024 11:27 AM Age: 84 years old Clinical indication: Prior surgery; Surgery date: 3-7 days post-operative; Surgery type: Post op cholecystectomy x 3 days ago; Hemorrhoidectomy; Lumbar fusion x several; Patient HX: Vomiting; Abdomen pain post cholecystectomy TECHNIQUE: Imaging protocol: Computed tomography of the abdomen and pelvis with contrast. Radiation optimization: All CT scans at this facility use at least one of these dose optimization techniques: automated exposure control; mA and/or kV adjustment per patient size (includes targeted exams where dose is matched to clinical indication); or iterative reconstruction. Contrast material: OMNI 350; Contrast volume: 100 ml; Contrast route: INTRAVENOUS (IV); COMPARISON: CT abdomen pelvis w con* [id number] 11/25/2019 2:17 PM RADIATION DOSE METRICS: Total DLP (mGy-cm): 388.57 FINDINGS: Lungs: Patchy atelectasis involves both lung bases. Heart: Moderate cardiomegaly is noted. Diaphragm: A hiatal hernia is noted in the lower mediastinum. Liver: Normal. No mass. Gallbladder and biliary ducts: There is a 3 cm collection of fluid and air within the gallbladder fossa along with surgical clips. Pancreas: Normal. No ductal dilation. Spleen: Normal. No splenomegaly. Adrenal glands: Normal. No mass. Kidneys and ureters: Normal. No hydronephrosis. Stomach and bowel: A large amount of stool is noted throughout much of the colon. There is scattered small bowel distension. The most prominent small bowel distension is noted in the left lower quadrant. Appendix: No evidence of appendicitis. Intraperitoneal space: A small amount of pneumoperitoneum is noted anteriorly and superiorly. Vasculature: Unremarkable. No abdominal aortic aneurysm. Lymph nodes: Unremarkable. No enlarged lymph nodes. Urinary bladder: Unremarkable as visualized. Reproductive: Unremarkable as visualized. Bones/joints: Metallic surgical hardware can be seen in the lumbar spine. Soft tissues: Unremarkable. CT/CT abdomen pelvis w con* [id number] IMPRESSION: 1. Normal postoperative changes noted. No abscess or hematoma noted. 2. Small bowel distension which is favored to represent ileus 3. Constipation
--- NOTE | 2024-05-09 10:39 | ED_ITS ---
HPI - Weakness 2 General: Chief complaint: Weakness Stated complaint: LETHARGY; WEAKNESS Time Seen by Provider: 05/09/24 10:22 History of Present Illness: 84-year-old female presents by EMS chief complaint generalized malaise fatigue and fatigue appetite reduction and vomiting patient is postop day 3 from a lap cholecystectomy done by Dr. Weir patient apparently had reduced appetite oral intake prior to the surgery patient had reports not having a bowel movement since she was discharged home as well as having reported persistent vomiting when she is only taken one of her hydrocodone she reports having pain all over patient reports she does not get out of her bed last couple of days patient presents by EMS for further assessment and management. Patient does not endorse being on any blood thinners she reports no recent infections or illnesses or any other associated symptoms. Associated symptoms: Denies chest pain, chills, fever(s) or headache(s) Review of Systems 2 General: Reports: 10 or more systems reviewed and unremarkable except in HPI and below Narrative: Moderate nausea with vomiting generalized weakness and fatigue constipation with abdominal pain Const: Denies: fever(s) or chills Eyes: Denies: change in vision or blurry vision Card: Denies: chest pain or palpitations Resp: Denies: dyspnea or productive cough : Denies: flank pain Musc: Denies: extremity pain or extremity swelling Skin/Breast: Denies: rash or pruritus Neuro: Denies: headache(s) Psych: Denies: anxiety or depression Judah/Lymph: Denies: easy bleeding All/Imm: Denies: urticaria, throat swelling or facial swelling PFSH ED 2 PFSH: Medical History Neuropathy Gout Hypothyroidism Hyperlipidemia Hypertension Migraine GERD (gastroesophageal reflux disease) Anxiety Gastritis Hiatal hernia Surgical History Status post colonoscopy 12/01/2019: normal S/P [place]-BSO History of lumbar fusion History of hernia repair with mesh History of bladder surgery History of appendectomy History of bilateral cataract extraction History of repair of rectocele History of thyroidectomy History of tonsillectomy History of colonoscopy History of esophagogastroduodenoscopy (EGD) 11/10/2019: Gastritis and hiatal hernia Social History Smoking and tobacco/nicotine status: current every day tobacco/nicotine user Alcohol intake: never Substance/Drug Use: never Caregiver/support person: Yes Lives independently: Yes Household members: spouse Marital status: Current occupational status: retired Special mingo needs: No Physical Exam 2 Narrative: EXAM NARRATIVE: Patient appears somewhat frail on exam mildly confused no focal neurodeficits appreciated afebrile Const: COMMON NORMALS: no acute distress, patient oriented x3 and healthy appearing HENMT: COMMON NORMALS: normocephalic and atraumatic HEAD & SCALP: n ormocephalic and atraumatic Eye: COMMON NORMALS: Equal, round and reactive pupils present and EOMs intact bilaterally PUPIL: Yes Equal, round and reactive pupils present Neck/C-Spine: COMMON NORMALS: full ROM and supple; negative for no JVD Lymph: LYMPHATIC: no lymphadenopathy noted Chest: COMMONS NORMALS: normal inspection of the chest and normal palpation of entire chest wall Resp: COMMON NORMALS: normal respiratory effort, No retractions and clear to auscultation bilaterally EFFORT & INSPECTION: Yes able to speak in complete sentences and Yes symmetric chest movement AUSCULTATION: clear to auscultation bilaterally Cardio: COMMON NORMALS: regular rhythm and S1 normal heart sound present; negative for no JVD and negative for regular rate (Sinus tachycardia on exam rate of 115 120) RATE: abnormal rate (Sinus tachycardia on exam rate of 115 120) RHYTHM: regular rhythm HEART SOUNDS: S1 normal heart sound present GI: COMMON NORMALS: Soft to palpation; negative for Normal to inspection, nondistended, normoactive bowel sounds present (3 small postoperative incisions are well reapproximated with glue overlying) and negative for non-tender (Generalized abdominal tenderness appreciated with guarding noted no rebound) INSPECTION: Yes normal to inspection PALPATION: Yes Soft to palpation : COMMON NORMALS: Yes no CVA tenderness BLADDER/KIDNEY EXAM: Yes no CVA tenderness Back/Pelvis: COMMON NORMALS: no CVA tenderness Extremity: COMMON NORMALS: normal to inspection and full ROM Neuro: COMMON NORMALS: patient oriented x3, CN's II-XII intact bilaterally, moves all extremities and no focal motor deficits Psych: COMMON NORMALS: mental status grossly normal, Normal thought process present, cooperative and normal affect THOUGHT PROCESS: Normal thought process present Skin: COMMON NORMALS: no rashes or lesions noted GENERAL SKIN EXAM: no rashes or lesions noted Course 2 Vital Signs: Vital signs: Vital Signs Temperature 98.3 F 05/09/24 10:18 Pulse Rate 114 H 05/09/24 12:00 Respiratory Rate 23 H 05/09/24 12:00 Blood Pressure 149/100 05/09/24 10:18 Pulse Oximetry 92 05/09/24 12:00 MDM - Weakness Medical Decision Making Due to patient's symptoms and condition IV is established IV fluids Hydration patient was found to be in sinus tachycardic on exam in the 115-120 range patient does not endorse any shortness of breath or chest pain underlying concerns of patient having postoperative ileus versus others prominent we will continue to follow. Patient's heart rate improved with IV fluids CT imaging revealed a postoperative ileus as well as mild atelectasis patient's not on any oxygen mentation spoke to the patient family at length including the present in which she did advise the patient need to get up at least 4-5 times daily encourage increased use of her respiratory demand as well as to encourage the use of the medications already provided for her constipation and ileus did advise that she further follow-up with her surgeon on Saturday for further eval in which to return the interim if any of her symptoms persist or worse I did also prescribe her some Relistor for her breakthrough opiate induced constipation Lab Data 05/09/24 10:59 05/09/24 10:59 Radiology Impressions Abdomen/Pelvis CT 05/09/24 10:35 IMPRESSION: 1. Normal postoperative changes noted. No abscess or hematoma noted. 2. Small bowel distension which is favored to represent ileus 3. Constipation Chest X-Ray 05/09/24 10:35 IMPRESSION: Left basilar atelectasis Laboratory Results WBC 17.76 10^3/uL (3.29-11.43) H 05/09/24 10:59 RBC 4.76 10^6/uL (3.85-5.65) 05/09/24 10:59 Hgb 14.70 g/dL (11.27-16.99) 05/09/24 10:59 Hct 45.9 % (36-47) 05/09/24 10:59 MCV 96.4 fl (85-98) 05/09/24 10:59 MCH 30.9 pg (27-33) 05/09/24 10:59 MCHC 32.0 g/dL (30-55) 05/09/24 10:59 RDW 15.0 % (12.1-15.1) 05/09/24 10:59 Plt Count 264 10^3/cmm (157-399) 05/09/24 10:59 MPV 11.1 fL (7.4-10.4) H 05/09/24 10:59 Neut % (Auto) 84.6 % 05/09/24 10:59 Lymph % (Auto) 5.3 % 05/09/24 10:59 Mingo % (Auto) 9.2 % 05/09/24 10:59 Eos % (Auto) 0.0 % 05/09/24 10:59 Baso % (Auto) 0.1 % 05/09/24 10:59 Neut # (Auto) 15.01 10^3/uL (1.8-7.7) H 05/09/24 10:59 Lymph # (Auto) 0.9 10^3/uL (0.8-4.8) 05/09/24 10:59 Mingo # (Auto) 1.6 10^3/uL (0.2-0.9) H 05/09/24 10:59 Eos # (Auto) 0.0 10^3/uL (0.0-0.8) 05/09/24 10:59 Baso # (Auto) 0.0 10^3/uL (0.0-0.1) 05/09/24 10:59 Nucleated RBC % (auto) 0 % 05/09/24 10:59 Nucleated RBCs # 0.0 /100WBC 05/09/24 10:59 Sodium 143 mmol/L (136-145) 05/09/24 10:59 Potassium 3.3 mmol/L (3.5-5.1) L 05/09/24 10:59 Chloride 102 mmol/L (98-107) 05/09/24 10:59 Carbon Dioxide 28 mmol/L (22-29) 05/09/24 10:59 Anion Gap 16.3 (5-19) 05/09/24 10:59 BUN 13 mg/dL (8-23) 05/09/24 10:59 Creatinine 0.7 mg/dL (0.5-0.9) 05/09/24 10:59 GFR Calculation Not Reportable 05/09/24 10:59 Glucose 138 mg/dL (65-115) H 05/09/24 10:59 POC Glucose 148 mg/dL (70-110) H 05/09/24 10:48 Calculated Osmolality 298 mOsm/kg (285-295) H 05/09/24 10:59 Lactic Acid 1.8 mmol/L (0.5-2.2) 05/09/24 10:59 Calcium 10.5 mg/dL (8.5-10.5) 05/09/24 10:59 Total Bilirubin 0.6 mg/dL (0.15-1.2) 05/09/24 10:59 AST 19 U/L (0-32) 05/09/24 10:59 ALT 12 U/L (0-33) 05/09/24 10:59 Alkaline Phosphatase 113 U/L (35-105) H 05/09/24 10:59 C-Reactive Protein 74.4 mg/L (0.0-4.9) H 05/09/24 10:59 Total Protein 7.7 g/dL (6.6-8.7) 05/09/24 10:59 Albumin 3.6 g/dL (3.5-5.2) 05/09/24 10:59 Globulin 4.1 g/dL (1.3-4.6) 05/09/24 10:59 Lipase 18 U/L (13-60) 05/09/24 10:59 Urine Color Yellow (Yellow) 05/09/24 11:05 Urine Appearance Clear (CLEAR) 05/09/24 11:05 Urine pH 7 (5-7) 05/09/24 11:05 Ur Specific Schlater 1.005 (1.005-1.030) 05/09/24 11:05 Urine Protein Neg (Negative) 05/09/24 11:05 Urine Glucose (UA) Norm (Normal) 05/09/24 11:05 Urine Ketones Negative (Negative) 05/09/24 11:05 Urine Blood Neg (Negative) 05/09/24 11:05 Urine Nitrate Negative (Negative) 05/09/24 11:05 Urine Bilirubin Neg (Negative) 05/09/24 11:05 Urine Urobilinogen Norm mg/dL (Negative) 05/09/24 11:05 Ur Leukocyte Esterase Negative (Negative) 05/09/24 11:05 Urine Opiates Screen Positive ng/mL (Negative) H 05/09/24 11:05 Ur Barbiturates Screen Negative ng/mL (Negative) 05/09/24 11:05 Ur Phencyclidine Scrn Negative ng/mL (Negative) 05/09/24 11:05 Ur Amphetamines Screen Negative ng/mL (Negative) 05/09/24 11:05 U Benzodiazepines Scrn Positive ng/mL (Negative) H 05/09/24 11:05 Urine Cocaine Screen Negative ng/mL (Negative) 05/09/24 11:05 U Marijuana (THC) Screen Negative ng/mL (Negative) 05/09/24 11:05 XR interpretation done by ED provider, pending radiology final review Discharge Plan Discharge Patient Disposition: Home Clinical Impression: Post-operative pain, Ileus, postoperative, Atelectasis Constipation Qualifiers: Constipation type: drug induced constipation Qualified Code(s): K59.03 - Drug induced constipation Condition: Stable Prescriptions: New Relistor 150 mg tablet 150 mg PO DAILY Qty: 7 0RF glycerin (adult) Suppository 1 supp OK BID PRN (Reason: constipation) Qty: 25 0RF ondansetron 4 mg tablet,disintegrating 4 mg PO QID Qty: 20 0RF No Action clarithromycin 500 mg tablet 500 mg PO BID 14 Days Qty: 28 0RF amoxicillin 500 mg tablet 1,000 mg PO BID 14 Days Qty: 56 0RF alprazolam 0.5 mg tablet 0.5 mg PO BID gabapentin 300 mg capsule 600 mg PO TID benazepril 40 mg tablet 40 mg PO DAILY levothyroxine 75 mcg tablet 75 mcg PO DAILY fenofibrate 160 mg Tablet 160 mg PO DAILY hydrocodone-acetaminophen 7.5-325 mg tablet 1 tab PO Q6H PRN (Reason: pain) Qty: 28 0RF Colace 100 mg capsule 100 mg PO BID Qty: 20 0RF Miralax 17 gram/dose powder 17 g PO DAILY 14 Days Qty: 238 0RF albuterol sulfate 90 mcg/actuation HFA aerosol inhaler 2 puff inhalation Q6H PRN (Reason: Shortness Of Breath) Rx Instructions: 2 puffs inhaled every 6 hours as needed pantoprazole [Protonix] 40 mg tablet,delayed release (DR/EC) 40 mg PO BID 84 Days Qty: 168 0RF Discharge Orders: Discharge ED (Routine); Ordered 05/09/24 Ordered By: Alexander Valdez Referrals: Nevaeh Monreal [Primary Care Provider] - 4-7 days Discharge Diet: Soft Mechanical Discharge Activity: Increase activity as tolerated Patient Instructions: Ileus (ED), Atelectasis (ED), Opioid Safety, Pain Management Activity Restrictions/Additional Instructions: Take medication as prescribed please further follow-up primary care in 2 to 3 days as well as your surgeon in which to return the interim if any of your symptoms persist or worse. Coding Level of Care Code ED Proposal Rep for Adelaide Redman
[2024-05-09 10:52] LABS: Glucose Point of Care 148 mg/dL (70-110)
[2024-05-09 11:12] LABS: Basophils % 0.1 %; Hematocrit 45.9 % (36-47); Lymphocytes # 0.9 10^3/uL (0.8-4.8); Lymphocytes % 5.3 %; Mean Corpuscular Hemoglobin 30.9 pg (27-33); Mean Corpuscular Volume 96.4 fl (85-98); Mean Platelet Volume 11.1 fL (7.4-10.4); Monocytes # 1.6 10^3/uL (0.2-0.9); Monocytes % 9.2 %; Neutrophils # 15.01 10^3/uL (1.8-7.7); Neutrophils % 84.6 %; Nucleated Red Blood Cells % 0 %; Platelet Count 264 10^3/cmm (157-399); Red Blood Count 4.76 10^6/uL (3.85-5.65); White Blood Count 17.76 10^3/uL (3.29-11.43)
[2024-05-09 11:16] LABS: Add Urine Microscopic? NO; Charge for UA Resulting for Rev
[2024-05-09] MEDS: ondansetron 2 mg/ML SDV 2 mL 4 MG IVP (11:26)
[2024-05-09] MEDS: sodium chloride 0.9% 1,000 ML 999 ML IV ×2 (11:26→12:45)
--- NOTE | 2024-05-09 11:26 | ECG_ITS ---
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 Measurements Intervals [place] Rate: 112 P: 25 TN: 144 QRS: 0 QRSD: 83 T: 8 QT: 325 QTc: 445 Interpretive Statements SINUS TACHYCARDIA WITH OCCASIONAL VENTRICULAR PREMATURE COMPLEXES WITH OCCASIONAL SUPRAVENTRICULAR PREMATURE COMPLEXES LOW QRS VOLTAGE IN PRECORDIAL LEADS [QRS DEFLECTION < 1.0 mV IN CHEST LEADS] POSSIBLE ANTERIOR MYOCARDIAL INFARCTION , OF INDETERMINATE AGE [30 ms Q WAVE IN V3/V4, OR R < 0.2 mV IN V4] INTERPRETATION BASED ON A DEFAULT AGE OF 40 YEARS Compared to ECG 05/07/2024 08:36:43 Ventricular premature complex(es) now present Low QRS voltage now present Myocardial infarct finding now present Sinus rhythm no longer present Electronically Signed On 05-10-2024 7:08:11 CDT by Steven Mata M.D. [email or web address]
[2024-05-09 11:32] LABS: Amphetamines Screen Urine Negative (Negative); Barbiturates Screen Urine Negative (Negative); Benzodiazepines Screen Urine Positive (Negative); Cocaine Screen Urine Negative (Negative); Opiate Screen Urine Positive (Negative); PCP Screen Urine Negative (Negative); THC Screen Urine Negative (Negative)
[2024-05-09 11:33] LABS: Lactic Sepsis W/Reflex 1.8 mmol/L (0.5-2.2)
[2024-05-09] MEDS: iohexol 350 mg/mL 500 mL Btl (per mL) IV (11:33)
[2024-05-09 11:34] LABS: Alanine Aminotransferase 12 U/L (0-33); Albumin Level 3.6 g/dL (3.5-5.2); Alkaline Phosphatase 113 U/L (35-105); Anion Gap 16.3 (5-19); Aspartate Amino Transferase 19 U/L (0-32); Blood Urea Nitrogen 13 mg/dL (8-23); C Reactive Protein 74.4 mg/L (0.0-4.9); Calcium 10.5 mg/dL (8.5-10.5); Carbon Dioxide 28 mmol/L (22-29); Chloride 102 mmol/L (98-107); Creatinine Clr Calc Pharmacy 43.6307; Globulin 4.1 g/dL (1.3-4.6); Glucose 138 mg/dL (65-115); Lipase 18 U/L (13-60); Osmolality Calculated 298 mOsm/kg (285-295); Potassium 3.3 mmol/L (3.5-5.1); Sodium 143 mmol/L (136-145); Total Bilirubin 0.6 mg/dL (0.15-1.2); Total Protein 7.7 g/dL (6.6-8.7)
[2024-05-09 11:39] LABS: Bilirubin Urine Neg (Negative); Blood Urine Neg (Negative); Glucose Urine UA Norm (Normal); Ketones Urine Negative (Negative); Leukocyte Esterase Urine Negative (Negative); Nitrate Urine Negative (Negative); Protein Urine Neg (Negative); Specific Gravity, Urine 1.005 (1.005-1.030); Urine Appearance Clear (CLEAR); Urine Color Yellow (Yellow); Urobilinogen Urine Norm (Negative); pH Urine 7 (5-7)
[2024-05-09 12:00] VITALS: PULSE 114; RESP 23; O2SAT 92
[2024-05-09] MEDS: methylnaltrexone 12 /0.6 mL INJ 12 MG SUBCUT (12:04)
[2024-05-09 12:30] VITALS: BP 163/105; PULSE 115; RESP 19; O2SAT 94
[2024-05-09] MEDS: acetaminophen 1,000 MG/100 ML PIGGYBACK 400 MG IV (12:55)
== END 2024-05-09 14:07 | disposition home or self-care (01) ==
PROVIDERS: Emergency Provider Emergency Medicine; PCP Nurse Practitioner Family
DX: K59.03 Drug induced constipation (principal); G89.18 Other acute postprocedural pain; K91.89 Other postprocedural complications and disorders of digestive system; K56.7 Ileus, unspecified; J98.11 Atelectasis; Z72.0 Tobacco use; E78.5 Hyperlipidemia, unspecified; I10 Essential (primary) hypertension
CPT/HCPCS: 36416; 71045; 74177; 80053; 80306; 81003; 82962; 83605; 83690; 85025; 86140; 93005; 96361; 96365; 96372; 96375; 99285; J0131; J2212; J2405; J7030; Q9967

== ENCOUNTER 2024-05-17 17:20 | Emergency (ER) | payer MEDICARE, SELFPAY ==
[2024-05-17 17:49] VITALS: BP 143/87; PULSE 93; RESP 18; TEMP 36.3; O2SAT 99
--- NOTE | 2024-05-17 19:12 | CTR_ITS ---
PROCEDURE INFORMATION: Exam: CT Abdomen And Pelvis Without Contrast Exam date and time: 05/17/2024 8:16 PM Age: 84 years old Clinical indication: Abdominal pain; Generalized; Prior surgery; Surgery date: <1 month; Surgery type: Lap eva and hemorroidectomy 05/07/2024. Lumbar fusion. Hernia mesh. Left femur. Bladder. Patient HX: C/O persistent abd pain with diarrhea post lap eva and hemorrhoidectomy 05/07/2024. ; Additional info: Abd pain, diarrhea post operative 10d TECHNIQUE: Imaging protocol: Computed tomography of the abdomen and pelvis without contrast. Radiation optimization: All CT scans at this facility use at least one of these dose optimization techniques: automated exposure control; mA and/or kV adjustment per patient size (includes targeted exams where dose is matched to clinical indication); or iterative reconstruction. COMPARISON: CT abdomen pelvis w con* [id number] 05/09/2024 11:27 AM RADIATION DOSE METRICS: Total DLP (mGy-cm): 442.85 FINDINGS: Tubes, catheters and devices: Laparoscopy port sites are noted in the abdominal wall. Lungs: Reticular opacities are seen at each lung base. Pleural spaces: No pleural fluid or pneumothorax. Heart: Heart size is normal. Diaphragm: Moderate to large sliding hiatal hernia. Liver: Normal configuration. Homogeneous parenchyma. Gallbladder and biliary ducts: Changes of cholecystectomy are noted. There is a sliver of fluid in the gallbladder fossa which is not unexpected. No biliary tree dilation. Pancreas: Moderate atrophy of the pancreas without visible edema or mass. Spleen: Scattered splenic calcifications. Spleen measures 8.5 cm in length. Adrenal glands: Normal configuration. Kidneys and ureters: No evidence of renal obstruction. No significant renal contour deformity. Stomach and bowel: Decompressed stomach. Normal caliber small bowel. Decompressed colon without visible inflammation. No bowel wall pneumatosis. Appendix: Normal appendix is confirmed. Intraperitoneal space: No free air. No significant fluid collection. Vasculature: Advanced aortoiliac calcific atherosclerosis without aneurysm. No portal venous gas. Lymph nodes: No enlarged lymph nodes. Urinary bladder: Unremarkable as visualized. Reproductive: Prior hysterectomy. No evidence of vaginal cuff or adnexal mass. Bones/joints: There is severe subjective bony demineralization. Multilevel vertebroplasty cement is noted. There has been prior posterior element fusion procedure spanning L2 to L4. Interbody spacers are noted at L4-L5 and L5-S1. Adequate spinal canal. Prior left hip ORIF. Soft tissues: There is edema surrounding the anus, and not unexpected following hemorrhoid surgery. CT/CT abdomen pelvis wo con [id number] IMPRESSION: 1. There is perianal edema compatible with recent hemorrhoidectomy. No abnormal fluid collection to suggest complication of this site. 2. Expected postoperative change in the gallbladder fossa. 3. Decompressed colon is nonspecific but can be seen with colitis or laxative use. 4. Subjective bony demineralization could be quantified with DEXA.
[2024-05-17 19:24] LABS: Add Urine Culture? Yes; Bacteria Urine 2+ /hpf; Mucus Urine TRACE /hpf; WBC Urine 80-100 /hpf (0-5)
[2024-05-17 19:34] LABS: Basophils # 0.1 10^3/uL (0.0-0.1); Eosinophils # 0.3 10^3/uL (0.0-0.8); Eosinophils % 3.1 %; Hematocrit 42.3 % (36-47); Lymphocytes # 1.6 10^3/uL (0.8-4.8); Lymphocytes % 14.9 %; Mean Corpuscular HGB Conc 31.2 g/dL (30-55); Mean Corpuscular Hemoglobin 31.2 pg (27-33); Monocytes # 1.2 10^3/uL (0.2-0.9); Monocytes % 11.1 %; Neutrophils # 7.35 10^3/uL (1.8-7.7); Neutrophils % 67.4 %; Nucleated Red Blood Cells % 0 %; Platelet Count 411 10^3/cmm (157-399); Red Blood Count 4.23 10^6/uL (3.85-5.65); Red Cell Distribution Width 14.9 % (12.1-15.1); White Blood Count 10.91 10^3/uL (3.29-11.43)
--- NOTE | 2024-05-17 19:39 | W.ED.NAVMDI ---
HPI - Nausea/Vomiting/Diarrhea General: Chief complaint: Nausea/Vomiting/Diarrhea Stated complaint: diarrhea Time Seen by Provider: 05/17/24 18:33 History of Present Illness: 84-year-old female who had cholecystectomy and hemorrhoidectomy on 05/07. Last week, she presented to the emergency department after not having had a bowel movement, and was generally weak. She was prescribed laxatives. She took these, and then has had soft frequent stools for the last 6 days. Family is concerned that she may be getting dehydrated. No vomiting. She has increasing pain in her lower abdomen now radiating into her back. No fever. She has had mild intermittent continued rectal bleeding. PFSH ED PFSH: Medical History Neuropathy Gout Hypothyroidism Hyperlipidemia Hypertension Migraine GERD (gastroesophageal reflux disease) Anxiety Gastritis Hiatal hernia Surgical History Status post colonoscopy 12/01/2019: normal S/P [place]-BS[facility] History of lumbar fusion History of hernia repair with mesh History of bladder surgery History of appendectomy History of bilateral cataract extraction History of repair of rectocele History of thyroidectomy History of tonsillectomy History of colonoscopy History of esophagogastroduodenoscopy (EGD) 11/10/2019: Gastritis and hiatal hernia Social History Smoking and tobacco/nicotine status: current every day tobacco/nicotine user Alcohol intake: never Substance/Drug Use: never Caregiver/support person: Yes Lives independently: Yes Household members: spouse Marital status: Current occupational status: retired Special mingo needs: No Physical Exam Const: COMMON NORMALS: no acute distress GENERAL APPEARANCE: cooperative; not ill appearing and not frail appearing HENMT: COMMON NORMALS: normocephalic, atraumatic and Normal external nose present HEAD & SCALP: normocephalic and atraumatic FACE & SINUS: normal facial exam and face symmetric NOSE: Normal external nose present Eye: COMMON NORMALS: Equal, round and reactive pupils present and EOMs intact bilaterally PUPIL: Yes Equal, round and reactive pupils present Neck/C-Spine: GENERAL: Yes trachea midline Chest: CHEST: Yes Symmetrical chest wall rise Resp: COMMON NORMALS: normal respiratory effort, No retractions, No use of accessory muscles and clear to auscultation bilaterally AUSCULTATION: clear to auscultation bilaterally Cardio: COMMON NORMALS: regular rate and regular rhythm RATE: regular rate RHYTHM: regular rhythm GI: COMMON NORMALS: Normal to inspection, nondistended, normoactive bowel sounds present PALPATION: Yes Tenderness to palpation present (GI) Details: LLQ and RLQ Extremity: COMMON NORMALS: no pedal edema Neuro: PATRICIA COMA SCALE: document GCS findings Patricia coma scale eye opening: Spontaneous Patricia coma scale verbal response: Orientated [place] coma scale motor response: Obey commands [place] coma scale total score: 15 SENSORY EXAM: Yes extremities (intact) Psych: COMMON NORMALS: speech normal SPEECH: Yes normal speech Skin: COMMON NORMALS: no rashes or lesions noted GENERAL SKIN EXAM: no rashes or lesions noted Course Vital Signs: Vital signs: Vital Signs Temperature 97.4 F L 05/17/24 17:49 Pulse Rate 84 05/17/24 20:17 Respiratory Rate 15 05/17/24 22:31 Blood Pressure 150/78 05/17/24 22:31 Pulse Oximetry 97 05/17/24 20:17 MDM - Nausea/Vomiting/Diarrhea Medical Decision Making White blood cell count is 11. Hemoglobin 13. Urinalysis reveals 2+ leukocyte esterase with 80-[address] scan reveals some perianal edema compatible with recent hemorrhoidectomy. On rectal exam, there is no active bleeding. There is minimal rectal swelling. No cellulitis, no purulent drainage. She has a decompressed colon consistent with her diarrhea. No other acute problems. Laboratory workup is otherwise not remarkable. She complains of ongoing pain. She appears to have used pain medication chronically in the past. She will be placed on short course of pain medication which should slow her diarrhea, and antibiotics for her urinary tract infection. She will be covered with Flagyl given risk of C. difficile. Outpatient follow-up. Return for worsening. Lab Data 05/17/24 19:26 05/17/24 19:26 Radiology Impressions Abdomen/Pelvis CT 05/17/24 19:12 IMPRESSION: 1. There is perianal edema compatible with recent hemorrhoidectomy. No abnormal fluid collection to suggest complication of this site. 2. Expected postoperative change in the gallbladder fossa. 3. Decompressed colon is nonspecific but can be seen with colitis or laxative use. 4. Subjective bony demineralization could be quantified with DEXA. Laboratory Results WBC 10.91 10^3/uL (3.29-11.43) 05/17/24 19: RBC 4.23 10^6/uL (3.85-5.65) 05/17/24 19: Hgb 13.20 g/dL (11.27-16.99) 05/17/24 19: Hct 42.3 % (36-47) 05/17/24 19: MCV 100.0 fl (85-98) H 05/17/24 19:26 MCH 31.2 pg (27-33) 05/17/24 19: MCHC 31.2 g/dL (30-55) 05/17/24 19: RDW 14.9 % (12.1-15.1) 05/17/24 19: Plt Count 411 10^3/cmm (157-399) H 05/17/24 19: MPV 10.0 fL (7.4-10.4) 05/17/24 19: Neut % (Auto) 67.4 % 05/17/24 19:26 Lymph % (Auto) 14.9 % 05/17/24 19:26 [place] % (Auto) 11.1 % 05/17/24 19:26 Eos % (Auto) 3.1 % 05/17/24 19: Baso % (Auto) 1.0 % 05/17/24: Neut # (Auto) 7.35 10^3/uL (1.8-7.7) 05/17/24 19: Lymph # (Auto) 1.6 10^3/uL (0.8-4.8) 05/17/24 19:26 [place] # (Auto) 1.2 10^3/uL (0.2-0.9) H 05/17/24 19:26 Eos # (Auto) 0.3 10^3/uL (0.0-0.8) 05/17/24 19: Baso # (Auto) 0.1 10^3/uL (0.0-0.1) 05/17/24 19:26 Nucleated RBC % (auto) 0 % 05/17/24 19: Nucleated RBCs # 0.0 /100WBC 05/17/24 19:26 Sodium 141 mmol/L (136-145) 05/17/24 19:26 Potassium 3.7 mmol/L (3.5-5.1) 05/17/24 19:26 Chloride 104 mmol/L (98-107) 05/17/24 19:26 Carbon Dioxide 22 mmol/L (22-29) 05/17/24 19:26 Anion Gap 18.7 (5-19) 05/17/24 19:26 BUN 9 mg/dL (8-23) 05/17/24 19:26 Creatinine 0.8 mg/dL (0.5-0.9) 05/17/24 19:26 GFR Calculation Not Reportable 05/17/24 19:26 Glucose 98 mg/dL (65-115) 05/17/24 19:26 Calculated Osmolality 291 mOsm/kg (285-295) 05/17/24 19:26 Lactic Acid 1.7 mmol/L (0.5-2.2) 05/17/24 19:26 Calcium 9.4 mg/dL (8.5-10.5) 05/17/24 19:26 Total Bilirubin 0.4 mg/dL (0.15-1.2) 05/17/24 19:26 AST 11 U/L (0-32) 05/17/24 19:26 ALT 7 U/L (0-33) 05/17/24 19:26 Alkaline Phosphatase 101 U/L (35-105) 05/17/24 19:26 C-Reactive Protein 14.9 mg/L (0.0-4.9) H 05/17/24 19:26 Total Protein 6.8 g/dL (6.6-8.7) 05/17/24 19:26 Albumin 3.1 g/dL (3.5-5.2) L 05/17/24 19:26 Globulin 3.7 g/dL (1.3-4.6) 05/17/24 19:26 Urine Color Yellow (Yellow) 05/17/24 18:47 Urine Appearance Cloudy (CLEAR) A 05/17/24 18:47 Urine pH 8 (5-7) H 05/17/24 18:47 Ur Specific [place] 1.010 (1.005-1.030) 05/17/24 18:47 Urine Protein Trace (Negative) 05/17/24 18:47 Urine Glucose (UA) Norm (Normal) 05/17/24 18:47 Urine Ketones Negative (Negative) 05/17/24 18:47 Urine Blood 2+ (Negative) H 05/17/24 18:47 Urine Nitrate Positive (Negative) A 05/17/24 18:47 Urine Bilirubin Neg (Negative) 05/17/24 18:47 Urine Urobilinogen Neg mg/dL (Negative) 05/17/24 18:47 Ur Leukocyte Esterase 2+ (Negative) H 05/17/24 18:47 Urine RBC 5-10 /hpf (0-2) H 05/17/24 18:47 Urine WBC 80-100 /hpf (0-5) H 05/17/24 18:47 Ur Squamous Epith Cells 3-5 /hpf (0-5) 05/17/24 18:47 Amorphous Sediment Not Reportable 05/17/24 18:47 Urine Bacteria 2+ /hpf (NONE) H 05/17/24 18:47 Urine Mucus Trace /hpf 05/17/24 18:47 All radiology interpretation(s) finalized by discharge Discharge Plan Discharge Patient Disposition: Home Clinical Impression: Acute UTI, Diarrhea Condition: Stable Prescriptions: New cefdinir 300 mg capsule 300 mg PO BID Qty: 14 0RF metronidazole 500 mg tablet 500 mg PO BID 7 Days Qty: 14 0RF Continued hydrocodone-acetaminophen 7.5-325 mg tablet 1 tab PO Q6H PRN (Reason: pain) Qty: 8 0RF No Action clarithromycin 500 mg tablet 500 mg PO BID 14 Days Qty: 28 0RF amoxicillin 500 mg tablet 1,000 mg PO BID 14 Days Qty: 56 0RF alprazolam 0.5 mg tablet 0.5 mg PO BID gabapentin 300 mg capsule 600 mg PO TID benazepril 40 mg tablet 40 mg PO DAILY levothyroxine 75 mcg tablet 75 mcg PO DAILY fenofibrate 160 mg Tablet 160 mg PO DAILY Colace 100 mg capsule 100 mg PO BID Qty: 20 0RF Miralax 17 gram/dose powder 17 g PO DAILY 14 Days Qty: 238 0RF albuterol sulfate 90 mcg/actuation HFA aerosol inhaler 2 puff inhalation Q6H PRN (Reason: Shortness Of Breath) Rx Instructions: 2 puffs inhaled every 6 hours as needed pantoprazole [Protonix] 40 mg tablet,delayed release (DR/EC) 40 mg PO BID 84 Days Qty: 168 0RF Relistor 150 mg tablet 150 mg PO DAILY Qty: 7 0RF glycerin (adult) Suppository 1 supp SD BID PRN (Reason: constipation) Qty: 25 0RF ondansetron 4 mg tablet,disintegrating 4 mg PO QID Qty: 20 0RF Discharge Orders: Discharge ED (Routine); Ordered 05/17/24 Ordered By: Fredy Morrissey Referrals: Nevaeh Monreal [Primary Care Provider] - 1-3 days Patient Instructions: Acute Diarrhea (ED), Urinary Tract Infection in Older Adults (ED), Opioid Safety, Pain Management Activity Restrictions/Additional Instructions: Drink plenty of liquids for the next 48 hours. Pain medication should be used sparingly, but can also help slow diarrhea. Antibiotics as directed. See your doctor next week. Return for fever greater than 100, vomiting liquids or medications, mental status changes, other concerning symptoms. Coding Level of Care Code ED Wet Finisher for Adelaide Redman
[2024-05-17 19:54] LABS: Alanine Aminotransferase 7 U/L (0-33); Albumin Level 3.1 g/dL (3.5-5.2); Alkaline Phosphatase 101 U/L (35-105); Anion Gap 18.7 (5-19); Aspartate Amino Transferase 11 U/L (0-32); Blood Urea Nitrogen 9 mg/dL (8-23); C Reactive Protein 14.9 mg/L (0.0-4.9); Calcium 9.4 mg/dL (8.5-10.5); Carbon Dioxide 22 mmol/L (22-29); Chloride 104 mmol/L (98-107); Creatinine Clr Calc Pharmacy 43.1889; Globulin 3.7 g/dL (1.3-4.6); Glucose 98 mg/dL (65-115); Lactic Sepsis W/Reflex 1.7 mmol/L (0.5-2.2); Osmolality Calculated 291 mOsm/kg (285-295); Potassium 3.7 mmol/L (3.5-5.1); Sodium 141 mmol/L (136-145); Total Bilirubin 0.4 mg/dL (0.15-1.2); Total Protein 6.8 g/dL (6.6-8.7)
[2024-05-17] MEDS: sodium chloride 0.9% 1,000 ML 999 ML IV (19:55)
[2024-05-17] MEDS: ondansetron 2 mg/ML SDV 2 mL 4 MG IVP (19:56)
[2024-05-17] MEDS: morphine 4 mg/mL SDV 1 mL 2 MG IVP (19:58)
[2024-05-17 20:17] VITALS: BP 158/69; PULSE 84; O2SAT 97
[2024-05-17] MEDS: cefdinir 300 MG CAPSULE PO (22:28)
[2024-05-17] MEDS: oxyCODONE-APAP 5-325 mg Tablet 1 TAB PO (22:28)
[2024-05-17] MEDS: metroNIDAZOLE 500 MG Tablet PO (22:28)
[2024-05-17 22:31] VITALS: BP 150/78; RESP 15
[2024-05-20 14:21] LABS: Add Urine Microscopic? YES; Bilirubin Urine Neg (Negative); Blood Urine 2+ (Negative); Glucose Urine UA Norm (Normal); Ketones Urine Negative (Negative); Leukocyte Esterase Urine 2+ (Negative); Nitrate Urine Positive (Negative); Protein Urine Trace (Negative); Urine Appearance Cloudy (CLEAR); Urine Color Yellow (Yellow); Urobilinogen Urine Norm (Negative); pH Urine 8 (5-7)
== END 2024-05-17 22:31 | disposition home or self-care (01) ==
PROVIDERS: Emergency Provider Emergency Medicine; PCP Nurse Practitioner Family
DX: N39.0 Urinary tract infection, site not specified (principal); R19.7 Diarrhea, unspecified; Z72.0 Tobacco use; E78.5 Hyperlipidemia, unspecified; I10 Essential (primary) hypertension
CPT/HCPCS: 36415; 74176; 80053; 81001; 83605; 85025; 86140; 87077; 87086; 87186; 96361; 96374; 96375; 99285; J2270; J2405; J7030

== ENCOUNTER 2024-05-21 12:36 | Emergency (ER) | payer MEDICARE, SELFPAY ==
[2024-05-21 12:43] VITALS: BP 107/68; PULSE 96; TEMP 36.9; O2SAT 95; BMI 21.2
--- NOTE | 2024-05-21 13:35 | W.ED.RECABL ---
HPI - Recheck/Abnormal Lab/Rx General: Chief Complaint: Recheck/Abnormal Lab/Rx Stated Complaint: hosp. called UTI Time Seen by Provider: 05/21/24 13:29 Source: patient Mode of arrival: ambulatory Limitations: no limitations History of Present Illness: 84-year-old female states that she was seen here couple days ago was diagnosed with a UTI patient started on Amoxil states she had no improvement in symptoms throbbing pain and dysuria found to have ESBL in her urine was called and told to come back up here. She denies any fevers denies any vomiting. Review of Systems Const: Denies: fever(s), chills, body aches or change in appetite ENMT: Denies: throat pain or dental pain Card: Denies: chest pain Resp: Denies: dyspnea GI: Reports: abdominal pain; Denies: nausea, vomiting or diarrhea : Reports: dysuria Musc: Denies: neck pain or back pain Skin/Breast: Denies: rash Neuro: Denies: headache(s) All/Imm: Denies: urticaria PFSH ED PFSH: Medical History Neuropathy Gout Hypothyroidism Hyperlipidemia Hypertension Migraine GERD (gastroesophageal reflux disease) Anxiety Gastritis Hiatal hernia Surgical History Status post colonoscopy 12/01/2019: normal S/P [place] History of lumbar fusion History of hernia repair with mesh History of bladder surgery History of appendectomy History of bilateral cataract extraction History of repair of rectocele History of thyroidectomy History of tonsillectomy History of colonoscopy History of esophagogastroduodenoscopy (EGD) 11/10/2019: Gastritis and hiatal hernia Social History Smoking and tobacco/nicotine status: current every day tobacco/nicotine user Alcohol intake: never Substance/Drug Use: never Caregiver/support person: Yes Lives independently: Yes Household members: spouse Marital status: Current occupational status: retired Special mingo needs: No Physical Exam Const: COMMON NORMALS: no acute distress, patient oriented x3 and healthy appearing HENMT: COMMON NORMALS: normocephalic and atraumatic HEAD & SCALP: normocephalic and atraumatic Neck/C-Spine: COMMON NORMALS: full ROM and supple Chest: COMMONS NORMALS: normal inspection of the chest Resp: COMMON NORMALS: normal respiratory effort Cardio: COMMON NORMALS: regular rate, regular rhythm and No murmurs present (Cardio) RATE: regular rate RHYTHM: regular rhythm GI: COMMON NORMALS: Normal to inspection, nondistended, normoactive bowel sounds present, Soft to palpation, non-tender and no masses PALPATION: Yes Soft to palpation Extremity: COMMON NORMALS: normal to inspection and full ROM Neuro: COMMON NORMALS: patient oriented x3, moves all extremities and no focal motor deficits Psych: COMMON NORMALS: mental status grossly normal, Normal thought process present and cooperative THOUGHT PROCESS: Normal thought process present Skin: COMMON NORMALS: no rashes or lesions noted and no wounds GENERAL SKIN EXAM: no rashes or lesions noted Course Vital Signs: Vital signs: Vital Signs Temperature 98.5 F 05/21/24 12:43 Pulse Rate 95 05/21/24 14:30 Blood Pressure 152/86 05/21/24 14:29 Pulse Oximetry 94 05/21/24 14:30 MDM - Recheck/Abnormal Lab/Rx Medical Decision Making Patient presents here for concern of UTI was resistant to antibiotics her urinalysis here shows no acute infection we will place her on Macrobid as her previous UA is sensitive to Macrobid she is follow-up with PCP return if worsening. Medical Records I reviewed the patient's medical records. Lab Data I reviewed the patient's lab results. 05/21/24 13:31 05/21/24 13:31 Laboratory Results WBC 11.99 10^3/uL (3.29-11.43) H 05/21/24 13:31 RBC 4.10 10^6/uL (3.85-5.65) 05/21/24 13:31 Hgb 12.70 g/dL (11.27-16.99) 05/21/24 13:31 Hct 40.8 % (36-47) 05/21/24 13:31 MCV 99.5 fl (85-98) H 05/21/24 13:31 MCH 31.0 pg (27-33) 05/21/24 13:31 MCHC 31.1 g/dL (30-55) 05/21/24 13:31 RDW 15.3 % (12.1-15.1) H 05/21/24 13:31 Plt Count 385 10^3/cmm (157-399) 05/21/24 13:31 MPV 10.0 fL (7.4-10.4) 05/21/24 13:31 Neut % (Auto) 73.0 % 05/21/24 13:31 Lymph % (Auto) 11.4 % 05/21/24 13:31 [place] % (Auto) 10.4 % 05/21/24 13:31 Eos % (Auto) 2.9 % 05/21/24 13:31 Baso % (Auto) 0.8 % 05/21/24 13:31 Neut # (Auto) 8.74 10^3/uL (1.8-7.7) H 05/21/24 13:31 Lymph # (Auto) 1.4 10^3/uL (0.8-4.8) 05/21/24 13:31 [place] # (Auto) 1.3 10^3/uL (0.2-0.9) H 05/21/24 13:31 Eos # (Auto) 0.4 10^3/uL (0.0-0.8) 05/21/24 13:31 Baso # (Auto) 0.1 10^3/uL (0.0-0.1) 05/21/24 13:31 Nucleated RBC % (auto) 0 % 05/21/24 13:31 Nucleated RBCs # 0.0 /100WBC 05/21/24 13:31 Sodium 139 mmol/L (136-145) 05/21/24 13:31 Potassium 3.6 mmol/L (3.5-5.1) 05/21/24 13:31 Chloride 105 mmol/L (98-107) 05/21/24 13:31 Carbon Dioxide 23 mmol/L (22-29) 05/21/24 13:31 Anion Gap 14.6 (5-19) 05/21/24 13:31 BUN 9 mg/dL (8-23) 05/21/24 13:31 Creatinine 0.8 mg/dL (0.5-0.9) 05/21/24 13:31 GFR Calculation Not Reportable 05/21/24 13:31 Glucose 116 mg/dL (65-115) H 05/21/24 13:31 Calculated Osmolality 288 mOsm/kg (285-295) 05/21/24 13:31 Calcium 9.2 mg/dL (8.5-10.5) 05/21/24 13:31 Total Bilirubin 0.2 mg/dL (0.15-1.2) 05/21/24 13:31 AST 13 U/L (0-32) 05/21/24 13:31 ALT 7 U/L (0-33) 05/21/24 13:31 Alkaline Phosphatase 90 U/L (35-105) 05/21/24 13:31 Total Protein 6.4 g/dL (6.6-8.7) L 05/21/24 13:31 Albumin 3.0 g/dL (3.5-5.2) L 05/21/24 13:31 Globulin 3.4 g/dL (1.3-4.6) 05/21/24 13:31 Urine Color Yellow (Yellow) 05/21/24 13:45 Urine Appearance Cloudy (CLEAR) A 05/21/24 13:45 Urine pH 6.5 (5-7) 05/21/24 13:45 Ur Specific [place] 1.012 (1.005-1.030) 05/21/24 13:45 Urine Protein Negative (Negative) 05/21/24 13:45 Urine Glucose (UA) Negative (Normal) 05/21/24 13:45 Urine Ketones Negative (Negative) 05/21/24 13:45 Urine Blood Negative (Negative) 05/21/24 13:45 Urine Nitrate Negative (Negative) 05/21/24 13:45 Urine Bilirubin Negative (Negative) 05/21/24 13:45 Urine Urobilinogen 0.2 mg/dL (Negative) 05/21/24 13:45 Ur Leukocyte Esterase 1+ (Negative) A 05/21/24 13:45 Urine RBC 0-2 /hpf (0-2) 05/21/24 13:45 Urine WBC 21-50 /hpf (0-5) H 05/21/24 13:45 Ur Squamous Epith Cells 11-20 /hpf (0-5) 05/21/24 13:45 Amorphous Sediment Not Reportable 05/21/24 13:45 Urine Bacteria None seen /hpf (NONE) 05/21/24 13:45 Hyaline Casts 0.81 /lpf 05/21/24 13:45 No radiology studies performed this visit Discharge Plan Discharge Patient Disposition: Home Clinical Impression: Acute UTI Condition: Stable Prescriptions: New nitrofurantoin monohyd/m-cryst [Macrobid] 100 mg capsule 100 mg PO BID 5 Days Qty: 10 0RF Rx Instructions: must administer with a meal/food No Action clarithromycin 500 mg tablet 500 mg PO BID 14 Days Qty: 28 0RF amoxicillin 500 mg tablet 1,000 mg PO BID 14 Days Qty: 56 0RF alprazolam 0.5 mg tablet 0.5 mg PO BID gabapentin 300 mg capsule 600 mg PO TID benazepril 40 mg tablet 40 mg PO DAILY levothyroxine 75 mcg tablet 75 mcg PO DAILY fenofibrate 160 mg Tablet 160 mg PO DAILY Colace 100 mg capsule 100 mg PO BID Qty: 20 0RF albuterol sulfate 90 mcg/actuation HFA aerosol inhaler 2 puff inhalation Q6H PRN (Reason: Shortness Of Breath) Rx Instructions: 2 puffs inhaled every 6 hours as needed pantoprazole [Protonix] 40 mg tablet,delayed release (DR/EC) 40 mg PO BID 84 Days Qty: 168 0RF Relistor 150 mg tablet 150 mg PO DAILY Qty: 7 0RF glycerin (adult) Suppository 1 supp [place] BID PRN (Reason: constipation) Qty: 25 0RF ondansetron 4 mg tablet,disintegrating 4 mg PO QID Qty: 20 0RF hydrocodone-acetaminophen 7.5-325 mg tablet 1 tab PO Q6H PRN (Reason: pain) Qty: 8 0RF cefdinir 300 mg capsule 300 mg PO BID Qty: 14 0RF metronidazole 500 mg tablet 500 mg PO BID 7 Days Qty: 14 0RF Discharge Orders: Discharge ED (Routine); Ordered 05/21/24 Ordered By: Sahil Knapp Referrals: Nevaeh Monreal [Primary Care Provider] - 4-7 days Discharge Diet: Advance as tolerated Discharge Activity: Resume usual activity Patient Instructions: Urinary Tract Infection in Men (ED) Coding Level of Care Code ED Paring Machine Operator for Adelaide Redman
[2024-05-21 13:37] LABS: Basophils # 0.1 10^3/uL (0.0-0.1); Basophils % 0.8 %; Eosinophils # 0.4 10^3/uL (0.0-0.8); Eosinophils % 2.9 %; Hematocrit 40.8 % (36-47); Lymphocytes # 1.4 10^3/uL (0.8-4.8); Lymphocytes % 11.4 %; Mean Corpuscular HGB Conc 31.1 g/dL (30-55); Mean Corpuscular Volume 99.5 fl (85-98); Monocytes # 1.3 10^3/uL (0.2-0.9); Monocytes % 10.4 %; Neutrophils # 8.74 10^3/uL (1.8-7.7); Nucleated Red Blood Cells % 0 %; Platelet Count 385 10^3/cmm (157-399); Red Cell Distribution Width 15.3 % (12.1-15.1); White Blood Count 11.99 10^3/uL (3.29-11.43)
[2024-05-21 13:52] LABS: Alanine Aminotransferase 7 U/L (0-33); Alkaline Phosphatase 90 U/L (35-105); Anion Gap 14.6 (5-19); Aspartate Amino Transferase 13 U/L (0-32); Blood Urea Nitrogen 9 mg/dL (8-23); Calcium 9.2 mg/dL (8.5-10.5); Carbon Dioxide 23 mmol/L (22-29); Chloride 105 mmol/L (98-107); Creatinine Clr Calc Pharmacy 43.1889; Globulin 3.4 g/dL (1.3-4.6); Glucose 116 mg/dL (65-115); Osmolality Calculated 288 mOsm/kg (285-295); Potassium 3.6 mmol/L (3.5-5.1); Sodium 139 mmol/L (136-145); Total Bilirubin 0.2 mg/dL (0.15-1.2); Total Protein 6.4 g/dL (6.6-8.7)
[2024-05-21 13:53] LABS: Charge for UA Resulting for Rev
[2024-05-21 13:56] LABS: Bilirubin Urine Negative (Negative); Blood Urine Negative (Negative); Glucose Urine UA Negative (Normal); Ketones Urine Negative (Negative); Leukocyte Esterase Urine 1+ (Negative); Nitrate Urine Negative (Negative); Protein Urine Negative (Negative); Specific Gravity, Urine 1.012 (1.005-1.030); Urine Appearance Cloudy (CLEAR); Urine Color Yellow (Yellow); Urobilinogen Urine 0.2 mg/dL (Negative); pH Urine 6.5 (5-7)
[2024-05-21 13:58] LABS: Bacteria Urine None Seen /hpf; Hyaline Casts Urine 0.81 /lpf; RBC Urine 0-2 /hpf (0-2); WBC Urine 21-50 /hpf (0-5)
[2024-05-21 14:29] VITALS: BP 152/86; PULSE 88; O2SAT 94
[2024-05-21 14:30] VITALS: PULSE 95; O2SAT 94
[2024-05-21 14:30] LABS: Add Urine Culture? Yes
[2024-05-21 15:00] VITALS: PULSE 80; RESP 16; O2SAT 96
[2024-05-21 15:27] VITALS: BP 152/86; PULSE 88; RESP 16; O2SAT 96
== END 2024-05-21 15:37 | disposition home or self-care (01) ==
PROVIDERS: Emergency Provider Emergency Medicine; PCP Nurse Practitioner Family
DX: N39.0 Urinary tract infection, site not specified (principal)
CPT/HCPCS: 36415; 80053; 81003; 81015; 85025; 87086; 99283

== ENCOUNTER → 2024-06-01 10:32 | Outpatient (BNVA) | payer MEDICARE, SELFPAY | PROVIDERS: PCP Nurse Practitioner Family; Visit Provider Surgery | DX: R15.9 Full incontinence of feces (principal); R10.9 Unspecified abdominal pain; K59.00 Constipation, unspecified | CPT/HCPCS: 99214 ==